=== PATIENT | female | born 1985 | race Two or more races ===

== ENCOUNTER 2020-07-21 04:26 | Emergency (ER) | payer SELFPAY ==
[~2020-07-21] VITALS: Ht 157.5 cm; Wt 55.7 kg
[2020-07-21 04:27] VITALS: BP 148/76
--- NOTE | 2020-07-21 04:36 | NUR ---
INITIAL PT CONTACT. PT PRESENTS TO ED C/O LOWER ABD CRAMPING. "I'M JUST HAVING UM SOME CRAMPS. I THINK I AM , LIKE MAYBE 5 MONTHS, I JUST HAD A POSITIVE TEST YESTERDAY. I AM SUPPOSED TO TRAVEL AND JUST WANT TO MAKE SURE I AM OK TO DO THAT. I HAVE A LITTLE BLEEDING FROM TIME TO TIME." SX STARTED TODAY. PT AMBULATORY, CALM COOPERATIVE. PT SITTING UPRIGHT ON DEVI PAYAN, VSS. PT DENIES ANY NEEDS AT THIS TIME. AWAITING ERP.
--- NOTE | 2020-07-21 04:43 | NUR ---
ERP AT BEDSIDE
--- NOTE | 2020-07-21 05:02 | NUR ---
US AT BEDSIDE
[2020-07-21 05:11] LABS: BASOPHILS % (AUTO) 1 % (0-1); EOSINOPHILS % (AUTO) 2 % (1-7); LYMPHOCYTES % (AUTO) 38 % (22-44); MEAN CORPUSCULAR HEMOGLOBIN 31.2 pg (27.0-34.8); MEAN CORPUSCULAR HGB CONC 33.8 g/dL (32.4-35.8); MEAN PLATELET VOLUME 7.3 fL (7.4-10.4); MONOCYTES % (AUTO) 9 % (2-9); NEUTROPHILS % (AUTO) 51 % (42-75); PLATELET COUNT 244 x10^3/uL (130-400); RED BLOOD COUNT 4.37 x10^6/uL (3.82-5.3)
[2020-07-21 05:13] LABS: MD NO
[2020-07-21 05:25] LABS: ALBUMIN 3.6 g/dL (3.4-5.0); ANION GAP 5 mmol/L (5-15); CALCIUM 8.5 mg/dL (8.5-10.1); CHLORIDE 108 mmol/L (98-107)
[2020-07-21 05:31] LABS: ALANINE AMINOTRANSFERASE 28 U/L (12-78); ALKALINE PHOSPHATASE 99 U/L (45-117); BILIRUBIN,TOTAL 0.3 mg/dL (0.2-1.0); TOTAL PROTEIN 7.3 g/dL (6.4-8.2)
--- NOTE | 2020-07-21 05:32 | NUR ---
THIS RN TO ROOM TO ASK PT TO PROVIDE URINE SAMPLE, PT STATES "I CAN'T DO THAT, I AM ACTUALLY IN A HURRY AND NEED TO LEAVE. I JUST NEEDED TO GET THE ULTRASOUND BUT I AM FINE. I'LL GO NOW". ERP AWARE.
--- NOTE | 2020-07-21 05:42 | NUR ---
Patient given discharge instructions and they have confirmed that they understand the instructions. Patient ambulatory with steady gait.
== END 2020-07-21 05:44 | disposition home or self-care (01) ==
LOC: ED 04:56
DX: R10.2 Pelvic and perineal pain (principal)
CPT/HCPCS: 36415; 76830; 80053; 84702; 85025; 86901; 99284